=== PATIENT | male | born 2000 | race Caucasian/White ===

== ENCOUNTER 2021-09-17 08:00 | Outpatient (CLI) | payer OTHER | END 2021-09-17 23:59 | LOC: LAB.N 08:00 | PROVIDERS: ATTEND Family Medicine | DX: U07.1 COVID-19 (principal) ==

== ENCOUNTER 2023-12-29 12:25 | Emergency (ER) | payer OTHER ==
[2023-12-29 13:18] VITALS: BP 151/85; O2SAT 98
--- NOTE | 2023-12-29 13:47 | ED Physician Documentation ---
PD HPI BACK PAIN - Stated complaint Stated Complaint: LOW BACK PX - Chief complaint Chief Complaint: Back Pain - Additional information Additional information: 23-year-old male with no pertinent past medical history presents emergency department for chronic lower back pain. Patient says that he has had multiple what he thinks benign injuries to his lower back over the years he says that he is in the he does a lot of heavy lifting at work but he has never had up to the point where he has been unable to go to work. He is taken Tylenol and ibuprofen at home with little to no relief. He has not followed with his primary care provider about this he has not seen physical therapy for this. He has no incontinence of bowel or bladder no fevers or chills no history of back surgery no nausea vomiting diarrhea. PD PAST MEDICAL HISTORY - Past Medical History Past Medical History: Yes Cardiovascular: None Respiratory: None Neuro: None Endocrine/Autoimmune: None GI: None : None HEENT: None Psych: None Musculoskeletal: Chronic back pain Derm: None - Past Surgical History Past Surgical History: No - Present Medications Home Medications: Ambulatory Orders Medication Instructions Recorded Confirmed Cyclobenzaprine [Flexeril] 10 mg PO TID PRN 6 Days #20 tablet 12/29/23 - Allergies Allergies/Adverse Reactions: Allergies Allergy/AdvReac Type Severity Reaction Status Date / Time No Known Drug Allergies Allergy Verified 12/29/23 13:08 - Social History Does the pt smoke?: No Smoking Status: Never smoker Does the pt drink ETOH?: Yes Does the pt have substance abuse?: No - Immunizations Immunizations are current?: Yes PD ED PE NORMAL - Vitals Vital signs reviewed: Yes - General General: Alert and oriented X 3, No acute distress, Well developed/nourished - Neuro Neuro: Alert and oriented X 3, hot die picker 2-12 intact, No motor deficit, No sensory deficit, Normal speech - Psych Psych: Normal mood, Normal affect - Free text exam Free text exam: Neck and back are without deformity, external skin changes, or signs of trauma. Curvature of the cervical, thoracic, and lumbar spine are within normal limits. Bony features of the shoulders and hips are of equal height bilaterally. Posture is upright, gait is smooth, steady, and within normal limits. No tenderness noted on palpation of the spinous processes. Spinous processes are midline. Cervical, thoracic, and lumbar paraspinal muscles are not tender and are without spasm. No discomfort is noted with flexion, extension, and [id number] rotation of the cervical spine, full range of motion is noted. Full range of motion including flexion, extension, and [id number] rotation of the thoracic and lumbar spine are noted and without discomfort. Straight leg raise test is positive on right ride. Sensation to the upper and lower extremities is normal bilaterally. No clonus is noted. Lamp Inspector strength is normal bilaterally. Dorsi/plantar flexion is normal bilaterally. Results - Vitals Vitals: Vital Signs - 24 hr 12/29/23 13:09 Temperature 36.4 C L Heart Rate 87 Respiratory 16 Rate Blood Pressure 151/85 H O2 Saturation 98 Oxygen O2 Source Room air PD Medical Decision Making - ED course ED course: This patient presents with back pain most consistent with right sided sciatica. Differential diagnoses includes lumbago versus musculoskeletal spasm / strain versus sciatica. Less likely sciatica as straight leg raise test was negative. No back pain red flags on history or physical. Presentation not consistent with malignancy (lack of history of malignancy, lack of B symptoms), fracture (no trauma, no bony tenderness to palpation), cauda equina (no bowel or urinary incontinence/retention, no saddle anesthesia, no distal weakness), AAA, viscus perforation, osteomyelitis or epidural abscess (no IVDU, vertebral tenderness), renal colic, pyelonephritis (afebrile, no CVAT, no urinary symptoms). Given the clinical picture, no indication for imaging at this time. Patient drove himself into the emergency department so a prescription of muscle relaxers was sent to his preferred pharmacy. Departure - Departure Disposition: 01 Home, Self Care Clinical Impression: Low back pain Qualifiers: Chronicity: acute Back pain laterality: midline Sciatica presence: with sciatica Sciatica laterality: sciatica of right side Qualified Code(s): M54.41 - Lumbago with sciatica, right side Instructions: ED Sciatica Prescriptions: Cyclobenzaprine [Flexeril] 10 mg PO TID PRN 6 Days #20 tablet PRN Reason: Spasms Comments: Thank you for trusting us with your care. As we discussed it is very important going home you are continuing to do some lower back stretches and exercises. I have sent a prescription of tizanidine to your preferred pharmacy can take this up to 3 times a day for muscle spasms and back pain. As we discussed look up on YouTube the broom stretch for sciatica pain. Please help with your primary care provider soon as possible for further evaluation of your lower back pain for possible outpatient imaging as well as physical therapy. Please come back to the emergency department for having any loss of control of your bladder or bowel, fevers or chills, or any other worsening symptoms. Discharge Date/Time: 12/29/23 14:07
[2023-12-29] MEDS: KETOROLAC 30 MG/ML VIAL IM STA (14:01)
== END 2023-12-29 14:07 | disposition home or self-care (01) ==
LOC: ED 12:25
DX: M54.41 Lumbago with sciatica, right side (principal)
CPT/HCPCS: 96372; 99283